=== PATIENT | female | born 1960 | race Caucasian/White ===

== ENCOUNTER 2016-12-16 07:07 | Day surgery (SDC) | payer BC ==
[~2016-12-16] VITALS: Ht 167.6 cm; Wt 88.6 kg
[~2016-12-16 07:07] MED LIST: LEVA500T PO; LORTA5 PO
[2016-12-16 07:36] VITALS: BP 123/79; PULSE 87; RESP 20; TEMP 98.3; O2SAT 95
[2016-12-16] MEDS ORDERED: SODIUM CHLOR 0.9% 1000 ML IV SCH (08:00)
[2016-12-16] MEDS ORDERED: LIDOCAINE 1%/EPINEPHrine 1:100,000 SOLN 20 ML VIAL ONE (08:26)
[2016-12-16] MEDS ORDERED: SODIUM BICARBONATE 8.4% INJ 50 ML ONE (08:26)
[2016-12-16] MEDS ORDERED: fentaNYL CITRATE 250 MCG/5 ML AMP ONE (08:57)
[2016-12-16] MEDS ORDERED: MIDAZOLAM HCL 5 MG/5 ML VIAL ONE (08:57)
[2016-12-16 10:00] VITALS: BP 108/66; PULSE 66; RESP 16; TEMP 97.6; O2SAT 100
[2016-12-16 10:15] VITALS: BP 99/62; PULSE 68; RESP 16; O2SAT 100
[2016-12-16] MEDS ORDERED: oxyCODONE/ACETAMINOPHEN 5 MG/325 MG TAB PO PRN (10:15)
[2016-12-16 10:45] VITALS: BP 101/60; PULSE 61; RESP 16; O2SAT 100
[2016-12-16 11:15] VITALS: BP 101/60; PULSE 61; RESP 16; O2SAT 100
--- NOTE | 2016-12-16 15:29 | RADRPT ---
EXAM DATE/TIME: 12/16/2016 08:43 [facility] COMPARISON: No previous studies available for comparison. INDICATIONS : Abdominal seroma. SEDATION TIME: 45 minutes MEDICATION(S): 1.) 3 mg midazolam (Versed) IV 2.) 150 mcg fentanyl (Sublimaze) IV DEVICE(S): 1.) 14 Fr Skater 2.) 18 gauge 10 cm Eastman needle FLUID: Total volume of 1000 cc of viscous reddish black fluid was removed. Fluid was discarded. MEDICAL HISTORY : Endometrial cancer, incisional hernia SURGICAL HISTORY : Hysterectomy. Incisional hernia repair ENCOUNTER: Initial ACUITY: 1 week PAIN SCORE: 4/10 LOCATION: Bilateral abdomen PROCEDURE: 1.) Conscious sedation with continuous EKG and oximetry monitoring. PROCEDURE : CT guided aspiration of ventral wall seroma The risks, benefits and alternatives to the procedure were explained and verbal and written consent w as obtained. The site was prepped in sterile fashion. Full sterile technique was used, including ca p, mask, sterile gloves and gown and a large sterile sheet. Hand hygiene and 2% chlorhexidine and/or betadine/alcohol prep was utilized per protocol for cutaneous antisepsis. The skin and subcutaneous tissues were infiltrated with local anesthetic solution. Needle was placed within the ventral wall seroma. Thick reddish black fluid aspirated. A 14 gauge cat heter was placed within the stroma due to the viscosity the fluid. The seroma eventually drained and decompressed. Catheter was removed. Patient tolerated the procedure without subluxations. CONCLUSION: Uncomplicated drainage of ventral wall seroma as above. Archie Sanches MD on December 16, 2016 at 15:21 Board Certified Radiologist. This report was verified electronically.
== END 2016-12-16 12:30 | disposition home or self-care (01) ==
LOC: HRAD 07:07 → HRIP 07:08 → HRAD 12:30
PROVIDERS: ATTEND Surgery
DX: L76.34 Postprocedural seroma of skin and subcutaneous tissue following other procedure (principal)
CPT/HCPCS: 10022; 77012; 99152; 99153; C1729; J2250; J3010; J7030

== ENCOUNTER 2017-02-10 09:52 | Day surgery (SDC) | payer BC ==
[2017-02-10 10:17] VITALS: BP 133/78; PULSE 78; RESP 18; TEMP 97; O2SAT 97
[2017-02-10] MEDS ORDERED: SODIUM BICARBONATE 8.4% INJ 50 ML ONE (16:02)
[2017-02-10] MEDS ORDERED: LIDOCAINE HCL 1% PF 30 ML VIAL ONE (16:02)
--- NOTE | 2017-02-11 11:45 | RADRPT ---
EXAM DATE/TIME: 02/10/2017 10:16 [facility] COMPARISON: No previous studies available for comparison. INDICATIONS : Abdominal wall seroma. MEDICAL HISTORY : Endometrial cancer. SURGICAL HISTORY : Hysterectomy. Hernia repair. Lysis adhesion removal. ENCOUNTER: Subsequent ACUITY: 2 weeks PAIN SCORE: 1/10 LOCATION: Midline abdominal wall. FLUID: Total volume of 230 cc of dark brown. fluid was removed. Fluid was discarded. Post procedure scanning reveals no hematoma or other complication. TECHNIQUE: 1. Ultrasound guidance for needle aspiration. 2. Aspiration. The risks, benefits, and alternatives to ultrasound guided aspiration were explained to the patient i n detail including the risk of bleeding and infection. Written and verbal informed consent was obtai solomon. With the patient on the ultrasound table, ultrasound imaging was used to select the most appropriate approach for aspiration. Overlying skin was prepped and draped in the usual sterile fashion and with local anesthetic a dermatotomy was made with an 11 blade scalpel. A catheter was introduced into th e cavity and fluid was collected. CONCLUSION: Uncomplicated ultrasound guided aspiration. Dean Barba MD on February 11, 2017 at 11:43 Board Certified Radiologist. This report was verified electronically.
== END 2017-02-10 11:00 | disposition home or self-care (01) ==
LOC: HRAD 09:52 → HRIP 09:54 → HRAD 11:00
PROVIDERS: ATTEND Surgery
DX: L76.82 Other postprocedural complications of skin and subcutaneous tissue (principal); Z85.42 Personal history of malignant neoplasm of other parts of uterus
CPT/HCPCS: 10160; 76942; C1729

== ENCOUNTER 2017-06-01 10:05 | Day surgery (SDC) | payer BC ==
[2017-06-01 10:58] VITALS: BP 132/86; PULSE 80; RESP 16; TEMP 96.8; O2SAT 97
[2017-06-01 12:20] VITALS: BP 110/70; PULSE 54; RESP 20; TEMP 96.4; O2SAT 99
[2017-06-01 12:35] VITALS: BP 104/62; PULSE 60; RESP 20; O2SAT 99
[2017-06-01] MEDS ORDERED: LIDOCAINE HCL 1% PF 30 ML VIAL ONE (15:05)
--- NOTE | 2017-06-01 15:46 | RADRPT ---
EXAM DATE/TIME: 06/01/2017 10:57 [facility] COMPARISON: No previous studies available for comparison. EXTERNAL COMPARISON: [facility], CT ABDOMEN AND PELVIS , Oct 21 2016 INDICATIONS : Abdominal seroma. MEDICAL HISTORY : Abdominal seroma. Endometrial cancer. Chemotherapy. SURGICAL HISTORY : Hysterectomy. ENCOUNTER: Subsequent ACUITY: 3 months PAIN SCORE: 2/10 LOCATION: Abdomen. FLUID: Total volume of 35 cc of cloudy, red fluid was removed. Fluid was discarded. Post procedure scanning reveals no hematoma or other complication. TECHNIQUE: 1. Ultrasound guidance for abscess drainage. 2. Abscess drainage. The risks, benefits, and alternatives to ultrasound guided abscess drainage were explained to the [facility] ient in detail including the risk of bleeding and infection. Written and verbal informed consent was obtained. With the patient on the ultrasound table, ultrasound imaging was used to select the most appropriate approach for drainage. Overlying skin was prepped and draped in the usual sterile fashion and with l ocal anesthetic a dermatotomy was made with an 11 blade scalpel. A 7 Thai pigtail catheter was int roduced into the cavity and 35 cc of serosanguineous fluid was collected. Iodine solution was injecte d into the seroma which was eventually evacuated. The 7 Thai pigtail catheter was then removed. Post procedure scanning reveals no hematoma or other complication. The patient tolerated the procedure well and the left the ultrasound suite in stable condition. CONCLUSION: Uncomplicated placement of a 7 Thai pigtail catheter within the abdominal wall seroma. Sclerosing a gent was then administered. The pigtail catheter and sclerosing agent was then evacuated. Archie Sanches MD on June 01, 2017 at 15:41 Board Certified Radiologist. This report was verified electronically.
== END 2017-06-01 15:40 | disposition home or self-care (01) ==
LOC: HRAD 10:05 → HRIP 10:09 → HRAD 15:40
PROVIDERS: ATTEND Surgery
DX: T88.8XXA Other specified complications of surgical and medical care, not elsewhere classified, initial encounter (principal); N99.842 Postprocedural seroma of a genitourinary system organ or structure following a genitourinary system procedure; Z85.42 Personal history of malignant neoplasm of other parts of uterus; Z90.710 Acquired absence of both cervix and uterus; Z92.21 Personal history of antineoplastic chemotherapy; Y83.8 Other surgical procedures as the cause of abnormal reaction of the patient, or of later complication, without mention of misadventure at the time of the procedure
CPT/HCPCS: 10160; 75989; C1729; C1769

== ENCOUNTER → 2017-12-15 | Outpatient (CLI) | payer BC ==
[~2017-12-15] MED LIST changes: -LEVA500T PO; -LORTA5 PO; +MIRA3350 PO
[2017-12-15 10:28] LABS: BACTERIA, URINE OCC /hpf; BILIRUBIN, URINE NEG (NEG); BLOOD, URINE NEG (NEG); GLUCOSE,URINE NEG (NEG); KETONE, URINE NEG (NEG); MUCUS URINE FEW /lpf (OCC); NITRITE,URINE NEG (NEG); PH, URINE 5.5 (5.0-8.5); SQUAMOUS EPITHELIAL CELL URINE 2 /hpf (0-5); URINE COLOR YELLOW (YELLW/STRAW); URINE LEUKOCYTE ESTERASE MOD (NEG)
== END ==
LOC: CPRE 08:54
PROVIDERS: ATTEND Colon & Rectal Surgery
DX: Z01.812 Encounter for preprocedural laboratory examination (principal); C20 Malignant neoplasm of rectum; R82.99 Other abnormal findings in urine
CPT/HCPCS: 36415; 81001; 82378; 87086

== ENCOUNTER 2017-12-23 11:44 | Inpatient (IN) | payer BC ==
[~2017-12-23] VITALS: Ht 167.6 cm; Wt 84.5 kg
[2017-12-23] MEDS ORDERED: ONDANSETRON HCL 4 MG/2 ML VIAL IV PUSH ONE (12:00)
[2017-12-23] MEDS ORDERED: ePHEDrine/NS 25 MG/5 ML SYRINGE IV ONE (12:00)
[2017-12-23] MEDS ORDERED: LIDOCAINE HCL 1% PF 5 ML SYRINGE OTHER ONE (12:00)
[2017-12-23] MEDS ORDERED: ESMOLOL HCL 100 MG/10 ML VIAL IV ONE (12:00)
[2017-12-23] MEDS ORDERED: ceFAZolin INJ 1,000 MG VIAL IV ONE (12:00)
[2017-12-23] MEDS ORDERED: PROPOFOL 200 MG/20 ML AMP IV ONE (12:00)
[2017-12-23] MEDS ORDERED: DEXAMETHASONE SOD PHOS 4 MG/ML VIAL IV ONE (12:00)
[2017-12-23] MEDS ORDERED: ROCURONIUM INJ 50 MG/5 ML SYRINGE IV PUSH ONE (12:00)
[2017-12-23] MEDS ORDERED: GLYCOPYRROLATE 1 MG/5 ML SYRINGE IV PUSH ONE (12:00)
[2017-12-23] MEDS ORDERED: VECURONIUM BROMIDE 20 MG VIAL IV ONE (12:00)
[2017-12-23] MEDS ORDERED: METOPROLOL TARTRATE 25 MG TAB PO PRN (12:45)
[2017-12-23] MEDS ORDERED: SODIUM CHLORID 0.9% 500 ML IV PRN (12:45)
[2017-12-23] MEDS ORDERED: CHLORHEXIDINE GLUCONATE 2 % 1 PACK (2 CLOTHS) TOPICAL PRN (12:45)
[2017-12-23] MEDS ORDERED: ceFAZolin 2 GM PREMIX 50 ML IV SCH (12:45)
[2017-12-23] MEDS ORDERED: METRONIDAZOLE 500 MG/100 ML ISONTONIC SOLN IV SCH (12:45)
[2017-12-23] MEDS ORDERED: POVIDONE IODINE 5% (ANTISEPSIS KIT) 4 APPLICATIONS EACH NARE PRN (12:45)
[2017-12-23] MEDS ORDERED: LACTATED RINGER'S 1000 ML IV PRN (12:45)
[2017-12-23] MEDS ORDERED: ACETAMINOPHEN 1000 MG/100 ML 100 ML IV ONE (14:33)
[2017-12-23] MEDS ORDERED: HYDROmorphone HCL PF 2 MG/ML VIAL ONE (15:56)
[2017-12-23] MEDS ORDERED: fentaNYL CITRATE 250 MCG/5 ML AMP ONE (15:57)
[2017-12-23] MEDS ORDERED: SUGAMMADEX SODIUM 200 MG/2 ML VIAL IV PUSH ONE ×2 (15:57→23:19)
--- NOTE | 2017-12-23 16:25 | PD.OP ---
Operative Report Date of Surgery: Dec 23, 2017 Preoperative Diagnosis: Rectal cancer Postoperative Diagnosis: Same Procedure: Cystoscopy with bilateral ureteral catheter insertion Anesthesia: NICHOLE Surgeon: Lonny Verma Repairer Engine Production(s): None Resident Surgeon: None Operation and Findings: 57-year-old female with evidence of rectal cancer who is undergoing robotic anterior perineal resection by Dr. Avery. Request made for bilateral ureteral catheter placement. The patient is brought to the operating room and was placed in the dorsal lithotomy position. She was prepped and draped in usual sterile fashion, preprocedure antibiotics were administered, and general endotracheal tube anesthesia was administered. 22 Bengali cystoscope was inserted in the bladder mensah cystoscopy did not reveal any abnormalities. The left ureteral orifice was identified and a 5 Bengali catheter was inserted into the left ureteral orifice without difficulty. This was again repeated on the right side without difficulty. A Manrique was inserted and the catheters were attached to the Manrique. She tolerated procedure well. Lonny Verma DO Dec 23, 2017 16:25
[2017-12-23] MEDS ORDERED: MIDAZOLAM HCL 2 MG/2 ML VIAL ONE (19:13)
[2017-12-23] MEDS ORDERED: ceFAZolin INJ 1,000 MG VIAL ONE (20:14)
[2017-12-23] MEDS ORDERED: ACETAMINOPHEN 325 MG TAB PO PRN (21:45)
[2017-12-23] MEDS ORDERED: POTASSIUM CHLOR 20 MEQ PREMIX 100 ML IV PRN (21:45)
[2017-12-23] MEDS ORDERED: MORPHINE SULFATE 30 MG/30 ML PCA IV SCH (21:45)
[2017-12-23] MEDS ORDERED: ONDANSETRON HCL 4 MG/2 ML VIAL IV PUSH PRN (21:45)
[2017-12-23] MEDS ORDERED: NALOXONE HCL 0.4 MG/ML AMP IV PUSH PRN (21:45)
[2017-12-23] MEDS ORDERED: ENALAPRILAT 1.25 MG/ML VIAL IV PUSH PRN (21:45)
[2017-12-23] MEDS ORDERED: BENZOCAINE 6 MG/MENTHOL 10 MG LOZENGE BUCCAL PRN (21:45)
[2017-12-23] MEDS ORDERED: POTASSIUM CHLOR 40 MEQ PREMIX 100 ML IV PRN (21:45)
[2017-12-23] MEDS ORDERED: diphenhydrAMINE HCL 50 MG/ML VIAL IV PUSH PRN (21:45)
[2017-12-23] MEDS ORDERED: Post-op Orders (for Pharmacy) XX ONE (21:45)
[2017-12-23] MEDS ORDERED: ACETAMINOPHEN/HYDROcodone 325 MG/5 MG TAB PO PRN (21:45)
[2017-12-23] MEDS ORDERED: ENALAPRILAT 2.5 MG/2 ML VIAL IV PUSH PRN (21:45)
[2017-12-23] MEDS: PCA - TOTAL MG MORPHINE DELIVERED PER SHIFT SCH (22:00)
[2017-12-23] MEDS ORDERED: DO NOT ADM ANY ANTICOAGULANT DRUGS PRN (22:15)
[2017-12-23] MEDS: KETOROLAC TROMETHAMINE 30 MG/ML (IVP) VIAL IVP SCH (22:22)
[2017-12-23] MEDS: D5-NS + KCL 20 MEQ INJ 1,000 ML IV SCH (22:35)
[2017-12-23 22:46] LABS: AUTOMATED NEUTROPHIL # 19.6 TH/MM3 (1.8-7.7); BASOPHIL % 0.1 % (0.0-2.0); HEMATOCRIT 36.9 % (35.0-46.0); HEMOGLOBIN 12.4 GM/DL (11.6-15.3); LYMPH % 2.2 % (9.0-44.0); LYMPHOCYTE # 0.4 TH/MM3 (1.0-4.8); MEAN CELL VOLUME 91.7 FL (80.0-100.0); MEAN CORPUSCULAR HEMOGLOBIN 30.9 PG (27.0-34.0); MEAN CORPUSCULAR HGB CONC 33.7 % (32.0-36.0); MONO % 1.2 % (0.0-8.0); MONOCYTE # 0.2 TH/MM3 (0-0.9); NEUT % 96.5 % (16.0-70.0); PLATELET COUNT 324 TH/MM3 (150-450); RED BLOOD COUNT 4.03 MIL/MM3 (4.00-5.30); RED CELL DISTRIBUTION WIDTH 14.8 % (11.6-17.2); WHITE BLOOD COUNT 20.3 TH/MM3 (4.0-11.0)
[2017-12-23 22:49] LABS: BICARBONATE 23.2 MEQ/L (21.0-32.0); CALCIUM 7.5 MG/DL (8.5-10.1); CREATININE 0.77 MG/DL (0.50-1.00)
[2017-12-23 23:30] VITALS: BP 130/62; PULSE 95; RESP 20; TEMP 98.1; O2SAT 94
[2017-12-23 23:45] VITALS: BP 125/62; PULSE 95; RESP 16; O2SAT 99
[2017-12-24] VITALS (16 sets, daily range): BP systolic 91–131; BP diastolic 51–64; PULSE 65–87; RESP 16–20; TEMP 97.7–98.2; O2SAT 94–100
[2017-12-24] MEDS: metroNIDAZOLE 500 MG INJ 100 ML IV SCH ×3 (01:28→16:36)
[2017-12-24 04:51] LABS: AUTOMATED NEUTROPHIL # 14.9 TH/MM3 (1.8-7.7); BASOPHIL % 0.1 % (0.0-2.0); HEMATOCRIT 34.6 % (35.0-46.0); LYMPH % 2.4 % (9.0-44.0); LYMPHOCYTE # 0.4 TH/MM3 (1.0-4.8); MEAN CELL VOLUME 91.8 FL (80.0-100.0); MEAN CORPUSCULAR HEMOGLOBIN 31.7 PG (27.0-34.0); MEAN CORPUSCULAR HGB CONC 34.6 % (32.0-36.0); MEAN PLATELET VOLUME 7.1 FL (7.0-11.0); MONO % 3.3 % (0.0-8.0); MONOCYTE # 0.5 TH/MM3 (0-0.9); NEUT % 94.2 % (16.0-70.0); PLATELET COUNT 310 TH/MM3 (150-450); RED BLOOD COUNT 3.77 MIL/MM3 (4.00-5.30); RED CELL DISTRIBUTION WIDTH 14.7 % (11.6-17.2); WHITE BLOOD COUNT 15.8 TH/MM3 (4.0-11.0)
[2017-12-24 05:11] LABS: BICARBONATE 25.7 MEQ/L (21.0-32.0); CALCIUM 7.8 MG/DL (8.5-10.1); CREATININE 0.86 MG/DL (0.50-1.00)
[2017-12-24] MEDS: PCA - TOTAL MG MORPHINE DELIVERED PER SHIFT SCH ×3 (06:00→22:00)
[2017-12-24] MEDS: DEXT 5%-NACL 0.9% 1000 ML INJ 1,000 ML IV SCH ×2 (08:37→11:28)
[2017-12-24] MEDS: D5-NS + KCL 20 MEQ INJ 1,000 ML IV SCH ×3 (08:37→23:39)
[2017-12-24] MEDS: KETOROLAC TROMETHAMINE 30 MG/ML (IVP) VIAL IVP SCH ×4 (08:38→21:09)
[2017-12-24] MEDS: PANTOPRAZOLE SODIUM 40 MG VIAL IVP SCH (09:09)
--- NOTE | 2017-12-24 10:49 | HHI.PR ---
Subjective Remarks C/R Surg POD #1 afebrile, VSS UO good, bloody Objective - Vital Signs Date Time Temp Pulse Resp B/P (MAP) Pulse Ox O2 Delivery O2 Flow Rate FiO2 12/24/17 10:03 16 12/24/17 08:06 99 Nasal Cannula 2.00 12/24/17 08:00 97.7 77 109/59 (76) Result Diagram: 12/24/1733812/24/17338 Objective Remarks PE alert Abd - soft, mild tympany, stoma pink A/P Assessment and Plan Imp: stable p[ost-op OOB PO liq tx to floor Allan Gandhi MD Dec 24, 2017 10:49
[2017-12-24] MEDS: HEPARIN SODIUM - SQ 10,000 UNITS/ML VIAL SQ SCH (21:09)
[2017-12-25] VITALS (7 sets, daily range): BP systolic 105–147; BP diastolic 55–70; PULSE 75–99; RESP 16–18; TEMP 98–98.8; O2SAT 94–99
[2017-12-25] MEDS: KETOROLAC TROMETHAMINE 30 MG/ML (IVP) VIAL IVP SCH ×5 (04:14→22:00)
[2017-12-25 04:34] LABS: AUTOMATED NEUTROPHIL # 5.3 TH/MM3 (1.8-7.7); BASOPHIL % 0.3 % (0.0-2.0); EOSINOPHIL # 0.2 TH/MM3 (0-0.4); EOSINOPHIL % 3.4 % (0.0-4.0); HEMATOCRIT 28.4 % (35.0-46.0); HEMOGLOBIN 9.8 GM/DL (11.6-15.3); LYMPH % 11.7 % (9.0-44.0); LYMPHOCYTE # 0.8 TH/MM3 (1.0-4.8); MEAN CELL VOLUME 94.1 FL (80.0-100.0); MEAN CORPUSCULAR HEMOGLOBIN 32.4 PG (27.0-34.0); MEAN CORPUSCULAR HGB CONC 34.4 % (32.0-36.0); MEAN PLATELET VOLUME 7.1 FL (7.0-11.0); MONO % 6.3 % (0.0-8.0); MONOCYTE # 0.4 TH/MM3 (0-0.9); NEUT % 78.3 % (16.0-70.0); PLATELET COUNT 228 TH/MM3 (150-450); RED BLOOD COUNT 3.02 MIL/MM3 (4.00-5.30); RED CELL DISTRIBUTION WIDTH 14.9 % (11.6-17.2); WHITE BLOOD COUNT 6.7 TH/MM3 (4.0-11.0)
[2017-12-25 05:25] LABS: BICARBONATE 25.4 MEQ/L (21.0-32.0); CALCIUM 7.4 MG/DL (8.5-10.1); CREATININE 0.57 MG/DL (0.50-1.00)
[2017-12-25 05:46] LABS: CALCIUM-PROTEIN CORRECTED 8.3 MG/DL (8.5-10.1); TOTAL PROTEIN 5.5 GM/DL (6.4-8.2)
[2017-12-25] MEDS: PCA - TOTAL MG MORPHINE DELIVERED PER SHIFT SCH (06:00)
[2017-12-25] MEDS: HEPARIN SODIUM - SQ 10,000 UNITS/ML VIAL SQ SCH ×2 (07:53→21:39)
[2017-12-25] MEDS: PANTOPRAZOLE SODIUM 40 MG VIAL IVP SCH (07:53)
--- NOTE | 2017-12-25 09:53 | HHI.PR ---
Subjective Remarks C/R Surg POD #2 afebrile, VSS UO good, bloody +flatus Objective - Vital Signs Date Time Temp Pulse Resp B/P (MAP) Pulse Ox O2 Delivery O2 Flow Rate FiO2 12/25/17 08:00 98.0 77 16 110/58 (75) 95 12/25/17 07:44 21 12/24/17 08:06 Nasal Cannula 2.00 Result Diagram: 12/25/17 0351 12/25/17 0351 Objective Remarks PE alert Abd - soft, mild tympany, stoma pink, wound dry A/P Assessment and Plan Imp: stable post-op OOB PO liq, adv tx to floor Allan Gandhi MD Dec 25, 2017 09:53
[2017-12-25] MEDS: D5-NS + KCL 20 MEQ INJ 1,000 ML IV SCH ×2 (10:52→12:55)
[2017-12-25] MEDS: ACETAMINOPHEN/HYDROcodone 325 MG/5 MG TAB PO PRN (22:00)
[2017-12-26 03:00] VITALS: BP 136/68; PULSE 78; TEMP 97.8; O2SAT 97
[2017-12-26] MEDS: KETOROLAC TROMETHAMINE 30 MG/ML (IVP) VIAL IVP SCH ×3 (04:00→16:00)
[2017-12-26] MEDS: ACETAMINOPHEN/HYDROcodone 325 MG/5 MG TAB PO PRN (04:04)
[2017-12-26 05:09] LABS: AUTOMATED NEUTROPHIL # 4.6 TH/MM3 (1.8-7.7); BASOPHIL % 0.6 % (0.0-2.0); EOSINOPHIL # 0.2 TH/MM3 (0-0.4); HEMATOCRIT 31.2 % (35.0-46.0); HEMOGLOBIN 10.8 GM/DL (11.6-15.3); LYMPH % 12.1 % (9.0-44.0); LYMPHOCYTE # 0.7 TH/MM3 (1.0-4.8); MEAN CELL VOLUME 93.8 FL (80.0-100.0); MEAN CORPUSCULAR HEMOGLOBIN 32.6 PG (27.0-34.0); MEAN CORPUSCULAR HGB CONC 34.7 % (32.0-36.0); MEAN PLATELET VOLUME 7.3 FL (7.0-11.0); MONO % 6.9 % (0.0-8.0); MONOCYTE # 0.4 TH/MM3 (0-0.9); NEUT % 76.4 % (16.0-70.0); PLATELET COUNT 267 TH/MM3 (150-450); RED BLOOD COUNT 3.32 MIL/MM3 (4.00-5.30); RED CELL DISTRIBUTION WIDTH 14.5 % (11.6-17.2); WHITE BLOOD COUNT 6.1 TH/MM3 (4.0-11.0)
[2017-12-26 05:19] LABS: BICARBONATE 24.1 MEQ/L (21.0-32.0); CREATININE 0.46 MG/DL (0.50-1.00)
--- NOTE | 2017-12-26 06:43 | MP ---
cc: TONYA AVERY M.D. DATE OF SURGERY December 23, 2017 PREOPERATIVE DIAGNOSIS Rectal cancer. POSTOPERATIVE DIAGNOSIS Rectal cancer. PROCEDURE 1. Robotic extensive lysis of adhesions. 2. Robotic abdominoperineal resection. SURGEON Tonya Avery MD RIB PULLER [place] ANESTHESIA General per ET tube. ESTIMATED BLOOD LOSS 100 cc. OPERATIVE INDICATIONS The patient is a 57-year-old female with rectal cancer who is not quite three months out from neoadjuvant chemoradiation. OPERATIVE FINDINGS The patient had a residual ulcer just above the anus anteriorly with a few small areas suggestive of residual cancer. This was fairly adherent to the posterior vagina. There were no visible abnormalities outside of the rectum or in the liver, although I was not able to visualize the entire liver. OPERATIVE COURSE The patient was brought to the operating room, placed in the supine position after induction of general anesthesia. The patient was placed in Brien stirrups and all bony prominences were carefully padded. The skin of the anterior abdominal wall as well as the perineal area was then prepped and draped in the usual sterile fashion. Dr. Verma then came in and performed cystoscopy with placement of bilateral ureteral catheters, please see his operative note for details. A site was then chosen for our initial trocar under the right costal margin due to her previous incision. A #5 trocar was placed under direct vision using a laparoscope. CO2 insufflation was then undertaken and a brief abdominal survey was performed. The patient was immediately noted to have large amounts of adhesions of mesentery and small bowel to the anterior abdominal wall. The camera/umbilical port was not clear enough to be placed so I elected to place the #1 right lower quadrant port. The 10/12 port was placed just inside the right anterior superior iliac spine and the adhesions were slowly and painstakingly dissected free from the peritoneal surface. Eventually we had these open enough that we were able to place the camera port. This was placed just above and to the right of the umbilicus. Upon make our incision and dissecting down to the anterior abdominal wall, we did get into what appeared to be an old hematoma and drained this. The patient was hydroplaned with the head down and to the right. The small bowel was brought up and out of the pelvis and some additional adhesions were dissected free. The remainder of the ports were placed with a #3 port in line with the umbilicus and the left anterior axillary line and the #2 port in the left midclavicular line two fingerbreadths above the umbilical line. The robot was then docked. The sigmoid colon was retracted down and to the left and the peritoneum was scored on the right. Dissection was continued in this plane posterior to the inferior mesenteric vessels until the left ureter was clearly identified and swept away from the specimen. Dissection then continued down into the posterior pelvis. The vessels were then dissected back to their takeoff from the aorta and the artery and vein were carefully dissected free. These were doubly clamped proximally with Hem-o-ifeanyi clamps and singly clamped distally. The lateral adhesions of the sigmoid colon and rectum to the left lateral sidewall were then dissected free, continuing this plane until the left ureter was clearly identified and we met our previous dissection. Dissection continued posteriorly down both lateral sides of the pelvis, slowly dissecting free the rectum down posteriorly, down to the level of the pelvic floor. Anteriorly the rectum was noted to be quite adherent to the posterior vagina but we slowly and painstakingly dissected this free as far as I felt was possible. Eventually we had full mobility of the descending, sigmoid colon and rectum. A site was then chosen for the stoma just at the proximal sigmoid. The mesentery at this level was divided using the harmonic scalpel and the [place] and vero placed across the bowel at this level. This was fired and the bowel was divided. A clamp was placed on the proximal end of the bowel to help us find the area in question. All dissection beds were then examined and there was no significant bleeding at this point. The robot was then undocked and we proceeded with the perineal portion of the procedure. An incision was made around the anus and using electrocautery dissection was carried down into the intersphincteric plane leaving a few fibers of the external muscle for closure. Eventually I was able to enter my previous dissection plane in the pelvis posteriorly and I dissected this around to the front. Due to the residual tumor, I did take a tiny strip of vagina posteriorly in order to assure that we had adequate margins. Eventually we were able to reverse the bowel, bring it out and the specimen was then sent for pathology. The perineal incision was then irrigated with warm normal saline and hemostasis obtained with electrocautery. The posterior vagina was closed in a running fashion using 0 Vicryl and the levator ani muscles were reapproximated in interrupted fashion using #1 PDS. The tissue overlying the levators was then reapproximated in an interrupted [id number] fashion using 2-0 Vicryl and the skin was closed in an interrupted subcuticular fashion using 3-0 Vicryl. Three additional mattress sutures of 3-0 nylon were placed to reinforce the suture. The CO2 insufflation was then resumed and we returned to the abdominal portion of the procedure. All dissection beds were examined and there was no sign of any significant bleeding. We did, however, dust some Surgicel powder into the pelvis. The right lower quadrant 10/12 trocar site was closed using the crossbow device and 0 Vicryl suture. Attempts were made to close the umbilical site but due to the mesh that was present this was not possible. However, it was a very small incision and it was at somewhat of an angle, so I felt that the risk of herniation was quite small. A site was then chosen for the stoma being located approximately one-third to one-half of the way from the umbilicus to the left anterior superior iliac spine. A 2 cm ellipse of skin was removed sharply and the preperitoneal fat was removed using electrocautery. She had a very thick abdominal wall at this portion. The anterior fascia of the abdominal wall was then incised at 2 cm vertically and the fibers of the rectus abdominis muscle were split. The posterior fascia was then incised the length of the skin incision. The stomal aperture was then gently dilated. The proximal stapled end of the bowel was then grasped and pulled up and out through the incision. She had quite a bit of epiploica and fatty tissue around the colon but we were gradually and slowly able to bring it out so that it would make a nice stoma. Some of the epiploica were then removed using electrocautery. The stoma was then matured in Iris fashion using 3-0 Vicryl. The remaining trocar sites were copiously irrigated with warm normal saline and they were closed in interrupted subcuticular fashion using 3-0 Vicryl. Steri-Strips and sterile dressing was then applied. A stomal appliance was applied. The right ureteral stent was removed. All sponge, needle and instrument counts were correct and the patient was returned to the post-anesthesia care in stable condition Tuesday. MD ZAKIYA Schreiber/ADRIAN /9:40 PM /6:19 AM
[2017-12-26 07:00] VITALS: BP 124/67; PULSE 71; RESP 17; TEMP 97.8; O2SAT 97
[2017-12-26 07:34] VITALS: O2SAT 97
[2017-12-26] MEDS: PANTOPRAZOLE SODIUM 40 MG VIAL IVP SCH (09:10)
[2017-12-26] MEDS: HEPARIN SODIUM - SQ 10,000 UNITS/ML VIAL SQ SCH ×2 (09:11→20:18)
[2017-12-26 11:00] VITALS: BP 125/61; PULSE 74; RESP 17; TEMP 97.9; O2SAT 99
[2017-12-26 15:00] VITALS: BP 135/70; PULSE 87; RESP 18; TEMP 97.9; O2SAT 99
--- NOTE | 2017-12-26 16:11 | PD.WCN.NOT ---
Wound Consult Description: Consult for NEW OSTOMY TEACHING of LLQ per Dr Avery Communicated with: Patient Patient Naida, RN Recommendation: Empty pouch when 1/3-1/2 full Change appliance (barrier and pouch) every 5-7 days and PRN for leaks Additional Information: Patient seen on for ostomy assessment and teaching. Full note to follow Ostomy Type: Colostomy Surgeon: Nova Avery MD Date of Surgery: Dec 23, 2017 Complete: Starter kit (verbal consent obtained), Education materials (left at bedside), Rx, Other (supplies ordered from [facility] for patient to go home with at discharge) Educated patient on: Stoma and skin care Ostomy supplies Food and drinks that cause more odor and gas Stoma appearance and function Showering Traveling Obtaining supplies Additional information Patient seen on for ostomy assessment and teaching. Stoma is red, moist, moderately protruding, lumen noted at 3 o'clock with mucus noted to stoma, dark brown liquid effluent noted in pouch was not emptied by principal technical writer. Appliance intact and noted without leaks. Heidi Stanton [facility] Dec 26, 2017 16:11
--- NOTE | 2017-12-26 17:50 | HHI.PR ---
Subjective Remarks POD#3 s/p robotic APR, DOMENICO comfortable Objective Vital Signs Date Time Temp Pulse Resp B/P (MAP) Pulse Ox O2 Delivery O2 Flow Rate FiO2 12/26/17 15:00 97.9 87 18 135/70 (91) 99 12/26/17 11:00 97.9 74 17 125/61 (82) 99 12/26/17 07:34 97 21 12/26/17 07:00 97.8 71 17 124/67 (86) 97 12/26/17 05:11 16 12/26/17 03:00 97.8 78 136/68 (90) 97 12/25/17 23:00 98.6 92 123/60 (81) 94 12/25/17 19:00 98.8 90 147/70 (95) 98 I/O 12/25/17 12/25/17 12/25/17 12/26/17 12/26/17 12/26/17 07:00 15:00 23:00 07:00 15:00 23:00 Intake Total 1200 ml 600 ml 500 ml Output Total 360 ml 650 ml 2300 ml 900 ml Balance 840 ml -50 ml -1800 ml -900 ml Intake Oral 240 ml 600 ml 500 ml IV Total 960 ml Output Urine Total 350 ml 450 ml 2100 ml 900 ml Stool Total 10 ml 200 ml 200 ml # Sanitary Pads 2 Pads 1 Pads 1 Pads 2 Pads 1 Pads 1 Pads 1 Pads 1 Pads 1 Pads Result Diagram: 12/26/17 0426 12/26/17425 Objective Remarks Abdomen soft, mild distension, tender Wounds clean Perineal wound - serous drainage, mild Assessment and Plan Assessment and Plan D/C parks Advance diet Home when [facility] arranged Nova Avery MD Dec 26, 2017 17:49
[2017-12-26 20:00] VITALS: BP 117/55; PULSE 88; RESP 18; TEMP 99; O2SAT 97
[2017-12-26] MEDS: D5-NS + KCL 20 MEQ INJ 1,000 ML IV SCH (20:22)
[2017-12-27] VITALS: BP 121/66; PULSE 81; RESP 18; TEMP 96.8; O2SAT 97
[2017-12-27 08:00] VITALS: BP 119/72; PULSE 76; RESP 18; TEMP 96.5; O2SAT 97
[2017-12-27] MEDS: PANTOPRAZOLE SODIUM 40 MG VIAL IVP SCH (09:39)
[2017-12-27] MEDS: D5-NS + KCL 20 MEQ INJ 1,000 ML IV SCH (09:40)
[2017-12-27] MEDS: HEPARIN SODIUM - SQ 10,000 UNITS/ML VIAL SQ SCH (09:40)
[2017-12-27 09:45] VITALS: O2SAT 97
--- NOTE | 2017-12-27 10:42 | HHI.FF ---
Face to Face Verification Diagnosis: (1) Rectal cancer Home Health Nursing Order: Wound care and dressing changes I have seen patient Mame Castro on 12/27/17. My clinical findings support the need for the requested home health care services because: Deconditioned w/ increased weakness I certify that my clinical findings support that this patient is homebound because: Post-op weakness (New stoma) Nova Avery MD Dec 27, 2017 10:42
--- NOTE | 2017-12-27 10:52 | HHI.PR ---
Subjective Remarks POD#4 s/p robotic APR, DOMENICO comfortable Objective Vital Signs Date Time Temp Pulse Resp B/P (MAP) Pulse Ox O2 Delivery O2 Flow Rate FiO2 12/27/17 09:45 97 12/27/17 08:00 96.5 76 18 119/72 (88) 97 12/27/17 08:00 96.5 76 18 119/72 (88) 97 12/27/17 00:00 96.8 81 18 121/66 (84) 97 12/26/17 20:00 99.0 88 18 117/55 (75) 97 12/26/17 15:00 97.9 87 18 135/70 (91) 99 12/26/17 11:00 97.9 74 17 125/61 (82) 99 I/O 12/26/17 12/26/17 12/26/17 12/27/17 12/27/17 12/27/17 07:00 15:00 23:00 07:00 15:00 23:00 Intake Total 500 ml 480 ml 240 ml Output Total 2300 ml 1600 ml 300 ml Balance -1800 ml -1120 ml -60 ml Intake Oral 500 ml 480 ml 240 ml Output Urine Total 2100 ml 1600 ml 200 ml Stool Total 200 ml 100 ml # Sanitary Pads 2 Pads 1 Pads 1 Pads 1 Pads 0 Pads Result Diagram: 12/26/1742512/26/17425 Objective Remarks Abdomen soft, mild distension, tender Wounds clean Perineal wound - serous drainage, mild Assessment and Plan Assessment and Plan Home when [facility] arranged Followup with me 3 weeks Nova Avery MD Dec 27, 2017 10:52
[2017-12-27] MEDS ORDERED: HYDR-3516 PO (10:54)
--- NOTE | 2017-12-27 11:07 | PD.WCN.NOT ---
Wound Consult Description: Consult for NEW OSTOMY TEACHING of LLQ per Dr Avery Communicated with: LUIS Farmer Patient Patient at bedside Recommendation: Empty pouch when 1/3-1/2 full Change appliance (barrier and pouch) every 5-7 days and PRN for leaks Use 2 3/4" appliance until stoma shrinks to size <1 1/4" Additional Information: Patient seen on [address] [place] [address] for ostomy assessment, teaching, and appliance change. Ostomy Type: Colostomy Surgeon: Nova Avery MD Date of Surgery: Dec 23, 2017 Complete: Starter kit (kit sent today via [employer] ), Education materials (left at bedside), Rx (2 sizes left on chart. 2 3/4" appliance to use now and 2 1/4" to use starting in January once stoma has shrunk in size), Other (supplies ordered from [facility] for patient to go home with at discharge) Educated patient on: How to remove wafer using adhesive remover wipes How to cleanse around stoma Sutures will disintegrate in approximately 3-4 weeks How to measure stoma using template Stoma should be red, moist, moderately protruding, functioning every 24-48 hours How to mold wafer to fit stoma How to warm wafer for adhesion How to apply pouch to flange How to close the pouch Additional information Patient seen on [address] [place] [address] for ostomy assessment, teaching, and appliance change using 2 3/4" moldable wafer and open ended pouch. Patient states that she will want to use the closed ended pouch upon discharge to home. Entire wafer and pouch was changed today with patient and . All questions were answered. If patient has any further questions she may ask her nurse to vocera sign writer hand today before 3:30 pm. Patient will be followed up on tomorrow if still in house. Patient had questions regarding HHC that were answered as well as informing patient about [employer] delivering starter kit on Tuesday. Supplies were ordered from [facility] for patient to go home with at discharge. Heidi Stanton Dec 27, 2017 11:07
[2017-12-27 12:00] VITALS: BP 129/59; PULSE 84; RESP 18; TEMP 97.3; O2SAT 97
[2017-12-27 16:00] VITALS: BP 130/72; PULSE 92; RESP 17; TEMP 97.6; O2SAT 99
== END 2017-12-27 16:00 | disposition home health service (06) | DRG 331 ==
LOC: HSDI 11:44 → HCPC 23:30 → N07A 12-26 16:43
PROVIDERS: ADMIT Colon & Rectal Surgery; ATTEND Colon & Rectal Surgery
PROC: 0DBQ4ZZ Excision of Anus, Percutaneous Endoscopic Approach (ICD-10-PCS; 2017-12-23)
PROC: 07BC4ZX Excision of Pelvis Lymphatic, Percutaneous Endoscopic Approach, Diagnostic (ICD-10-PCS; 2017-12-23)
PROC: 0D1N0Z4 Bypass Sigmoid Colon to Cutaneous, Open Approach (ICD-10-PCS; 2017-12-23)
PROC: 0UBG4ZX Excision of Vagina, Percutaneous Endoscopic Approach, Diagnostic (ICD-10-PCS; 2017-12-23)
PROC: 8E0W4CZ Robotic Assisted Procedure of Trunk Region, Percutaneous Endoscopic Approach (ICD-10-PCS; 2017-12-23)
PROC: 0T9B70Z Drainage of Bladder with Drainage Device, Via Natural or Artificial Opening (ICD-10-PCS; 2017-12-23)
PROC: 0T788DZ Dilation of Bilateral Ureters with Intraluminal Device, Via Natural or Artificial Opening Endoscopic (ICD-10-PCS; 2017-12-23)
PROC: 0DBN4ZZ Excision of Sigmoid Colon, Percutaneous Endoscopic Approach (ICD-10-PCS; principal; 2017-12-23 15:24)
PROC: 0DTP4ZZ Resection of Rectum, Percutaneous Endoscopic Approach (ICD-10-PCS; 2017-12-23 15:24)
DX: C20 Malignant neoplasm of rectum (principal)
CPT/HCPCS: 80048; 84155; 85025; 86850; 86900; 86901; 88309; 94150; C9113; J0131; J0690; J1100; J1170; J1644; J1885; J2250; J2270; J2405; J3010; J3480